=== PATIENT | male | born 1955 | race Caucasian/White ===

== ENCOUNTER → 2016-08-05 | Day surgery (SDC) | payer OTHER ==
[~2016-08-05] VITALS: Ht 172.7 cm; Wt 81.6 kg
[~2016-08-05] MED LIST: ATORVASTATIN CA10 MG PO; AZITHROMYCIN250 MG PO; BUFFERIN LOW DO81 MG PO; MAGNESIUM OXID400 MG PO; NEXIUM 40MG40 MG PO; PLAVIX75 M1 PO
--- NOTE | 2016-08-12 10:00 | Operative Report ---
Operative/Inv Procedure Report Surgery Date: 08/05/16 Name of Procedure: Resection neuroma left foot resection left foot neuroma Pre-Operative Diagnosis: Neuroma left foot Post-Operative Diagnosis: Same Estimated Blood Loss: none Surgeon/Drum Dyeing Machine Operator: KALEY ALEXIS MD Anesthesia: local monitored anesthesi, block IV Fluids: See anesthesia record Implants: None Drains: None Specimens: Neuroma left foot to pathology Complications: None Condition: Stable Operative Indication: Patient's 60-year-old male with left forefoot pain. He failed conservative treatment for his neuroma with Kenalog injections. He wished to have resection. Operative/Procedure Note Note: Once informed consent was obtained and the correct limb was identified the patient brought to operating room placed on table supine position. After administration of local anesthesia and sedation and ankle block was performed on the left lower extremity. Left lower shoulder was then prepped and draped usual sterile fashion. To begin the procedure a incision made directly over the third metatarsal and metatarsophalangeal joint to allow access to both the second and third webspace neuromas. Sharp dissection was carried down to skin and subcutaneous tissue with care to avoid and protect neurotendinous structures. A small reamer and retractors placed between second third metatarsal heads and the transverse metatarsal ligament was resected. The digital nerve was identified and the neuroma was identified and sharply dissected with the tenotomy scissor and excised without complication and the second webspace. Attention was then turned to the third webspace again the transverse metatarsal ligament was incised. This allowed for visualization of the digital nerve and the neuroma. Using pickups and tenotomy scissor the digital nerve was dissected out distally and the nerve was resected proximal to the neuroma formation. Both specimens were passed off and sent to pathology. The wound was irrigated. The skin was then closed with 3-0 nylon interrupted sutures. Sterile dressing was applied and the patient was awakened taken recovery in stable condition.
== END ==
LOC: STS 02:48
DX: G57.62 Lesion of plantar nerve, left lower limb (principal); E78.5 Hyperlipidemia, unspecified; F17.200 Nicotine dependence, unspecified, uncomplicated; K21.9 Gastro-esophageal reflux disease without esophagitis; I10 Essential (primary) hypertension; M79.672 Pain in left foot; M25.559 Pain in unspecified hip; Z79.82 Long term (current) use of aspirin
CPT/HCPCS: J0690; J2250